=== PATIENT | female | born 1945 | race Caucasian/White ===

== ENCOUNTER 2018-06-20 13:41 | Observation (INO) | payer MEDICARE ==
[~2018-06-20 13:41] MED LIST: ISOVUE-370 76%-LOCM 1 ML ONE
[2018-06-20] MEDS ORDERED: Ondansetron ODT 4 MG TAB SL PRN (16:24)
[2018-06-20] MEDS ORDERED: Ondansetron HCl/PF 4 MG/2 ML Vial IVP PRN ×2 (16:24→16:33)
--- NOTE | 2018-06-20 16:25 | PDOC.FPRHP ---
- History of Present Illness Chief Complaint: numbness/tingling History of Present Illness: This is a 73 yo F here from [facility] with PMH significant for AVR 1 year ago , DM, HTN, HLD, presenting for numbness and tingling of the right upper extremity and right face. The patient was shopping with her sister when she began developing these symptoms. The sister endorses that patient's speech was slurred and that she was having a hard time getting her words out as well as some right sided facial droop. The patient noted some vision changes during the episodes that looked like "a loop going in circles on her shirt." The patient denies nausea, vomiting, dizziness, chest pain or palpitations during the episode. The episode resolved after 30-45 mins. On exam currently, her symptoms have resolved and she no longer has weakness or tingling. She is responding normally and is AXOX3. She has no complaints and denies SOB, chest pain, abdominal pain, weakness, tingling, NVD. - Allergies/Adverse Reactions Allergies Allergy/AdvReac Type Severity Reaction Status Date / Time codeine Allergy severe n/v Verified 01/24/17 12:48 Penicillins Allergy Verified 01/24/17 12:48 - Home Medications Medication Instructions Recorded Confirmed Type Metoprolol Succinate 25 mg PO DAILY 01/04/17 06/20/18 History Rosuvastatin Calcium 1 tab PO HS 01/04/17 06/20/18 History metFORMIN HCl [Metformin HCl ER] 1 tab PO DAILY 01/04/17 06/20/18 History Aspirin [Ecotrin] 81 mg PO DAILY 06/20/18 06/20/18 History Losartan [Cozaar] 25 mg PO HS 06/20/18 06/20/18 History - History PMHx: DM, HTN, HLD PSHx: rib removal, appendectomy, hysterectomy, aortic valve replacement, hand surgery, Bunyan surgery FHx: Mother & brother: stroke at 50 Social: denies tobacco, alcohol, or drug use - Review of Systems General: denies: fever/chills, weight/appetite/sleep changes, night sweats, fatigue Eyes: reports: vision changes. denies: eye pain ENT: denies: nasal congestion, rhinorrhea Respiratory: denies: cough, congestion, shortness of breath, exercise intolerance Cardiovascular: denies: chest pain, palpitation, edema, paroxysmal nocturnal dyspnea Gastrointestinal: denies: nausea, vomiting, diarrhea, constipation, abdominal pain Genitourinary: denies: incontinence, dysuria, polyuria Skin: denies: rashes, lesions Musculoskeletal: denies: pain, tenderness, stiffness, swelling Neurological: reports: numbness, weakness. denies: syncope, seizure Psychological: denies: anxiety, depression - Vital signs BP: 143-163/64 HR: 75 RR: 20 Tmax: 98.1 Pox: 100% on RA Wt: [] - Physical Exam Constitutional: NAD, awake, alert and oriented, well developed HEENT: normocephalic and atraumatic, PERRLA, EOMI, no scleral icterus, grossly normal vision, grossly normal hearing, MMM Neck: supple, no bruits -Neck: mild JVD Chest: no-tender to palpation Heart: RRR, pulses present -Heart: 2/6 systolic murmur Lungs: CTAB, no respiratory distress, good air movement, no wheezing Abdomen: soft, non-tender, bowel sounds present, no masses/distention Musculoskeletal: normal structure, normal tone, ROM grossly normal Neurological: no focal deficit, CN II-XII intact, normal sensation, DTRs 2+ Skin: no rash/lesions, good turgor, capillary refill <2 seconds Heme/Lymphatic: no unusual bruising or bleeding, no purpura, no petechia Psychiatric: normal mood and affect, intact recent and remote memory FMR H&P: Results - Radiology Interpretation CT scan - head Additional comment: unremarkable FMR H&P: A/P - Problem List (1) Transient ischemic attack (TIA) Current Visit: Yes Status: Acute Code(s): G45.9 - TRANSIENT CEREBRAL ISCHEMIC ATTACK, UNSPECIFIED (2) Diabetes Current Visit: Yes Status: Acute Code(s): E11.9 - TYPE 2 DIABETES MELLITUS WITHOUT COMPLICATIONS (3) HTN (hypertension) Current Visit: Yes Status: Acute Code(s): I10 - ESSENTIAL (PRIMARY) HYPERTENSION (4) Hyperlipidemia Current Visit: Yes Status: Acute Code(s): E78.5 - HYPERLIPIDEMIA, UNSPECIFIED (5) History of aortic valve replacement Current Visit: Yes Status: Acute Code(s): Z95.2 - PRESENCE OF PROSTHETIC HEART VALVE - Plan This is a 73 year old F presenting here for work up for TIA/stroke. TIA - symptoms have resolved - Will get CTA head and neck and MRI - Will get EKG - Will get Echo as patient has hx of AVR one year ago - Will consult neurology DM - continue home meds HTN - continue home meds HLD - continue home meds Hx of AVR - s/p 1 year ago; bovine valve - Will continue to monitor and give home meds DISPO: likely discharge tomorrow pending imaging results and work up CODE: FULL Case discussed with Dr. Ivan FMR H&P: Upper Level - Pertinent history 73F seen for numbness and weakness of right hand, right sided facial weakness. She was shopping when these symptoms occurred. It was witnessed by her sister, occurring at 1030 AM. It has been constant since then but has completely resolved by time of this interview. She associate weakness with left sided headache that felt like a "migraine". She noted before symptom started, she had vision change, seeing yellow loops moving in circles. Issue resolved in 30-45 minute. She denies fever, chills, SOB, chest pain, abd pain, tingling. - Pertinent findings Gen: Alert, grossly oriented, pleasant HEENT: Normocephalic, moist mucosal membrane, supple neck CV: RRR with no obvious g/r. No bruit heard. 2/6 systolic murmur. Hx of aortic heart valve. Resp: CTA bilat GI: Normoactive, not tender to palpation Neuro: CN II-XII grossly intact, no focal weakness, stregnth 5/5 in upper and lower ext. Normal tone. Sensation grossly intact. Patient AOx3 - Plan Date/Time: 06/20/18 1612 I, [Tr Pérez MD], have evaluated this patient and agree with findings/plan as outlined by financial internship resident. Pertinent changes/additions are listed here. 1. TIA: Plan, obtain MRI, CTA head/neck, TTE and lipid panel to help risk stratify. COnsult Neurology. Medically manage with aspirin, statin. Symptom has resolved. 2. Diabetes: Hold metformin due to contrast imaging. Mild SSI. BG controlled at this time. 3. HTN: At this time, BP is WNL. Continue with home medication. 4. HLD: Chronic issue. Risk stratify with lipid panel. Patient to be on mod- high intensity statin. 5. Hx of aortic valve replacement: Obtain TTE to rule out cardiac causes of emboli.
[2018-06-20] MEDS ORDERED: Ondansetron ODT 4 MG TAB PO PRN (16:33)
[2018-06-20] MEDS ORDERED: Acetaminophen 325 MG TAB PO PRN (16:33)
[2018-06-20 17:43] VITALS: BMI 32.3
--- NOTE | 2018-06-20 18:41 | CT ---
CT ARTERIOGRAM HEAD WITH IV CONTRAST AND 3D MIP IMAGING CT ARTERIOGRAM NECK WITH IV CONTRAST AND 3D MIP IMAGING CT HEAD WITH AND WITHOUT IV CONTRAST 06/20/18 HISTORY: TIA. Right facial and arm numbness. FINDINGS: No acute intracranial hemorrhage or infarct. Mild chronic ischemic small vessel disease. No abnormal areas of contrast enhancement. Mild atelectasis at the posterior lungs. Prominent degenerative changes cervical spine. Tiny cystic l esion within the right thyroid lobe. Very mild arterial calcification within the chest. Normal branching of the great vessels. Good flow i nto each internal carotid and vertebral system. Carotid bifurcations are widely patent. No significant plaque. [place] is intact. Good flow into each cerebral and posterior fossa arterial system with minimal calcification. IMPRESSION: Minimal atherosclerosis. No evidence of significant stenosis. No acute abnormalities are demonstrated. POS: BIJU
--- NOTE | 2018-06-21 05:31 | PDOC.FM ---
- Subjective Subjective: This is a 73 yo F here for TIA symptoms. She began having numbness and tingling in the RUE along with right facial droop that resolved after 30-45 min. A few hours after her presentation to the hospital, she had new onset left sided tingling and numbness that has also resolved. On exam this morning, the patient complains of a persistent dull headache in the right judaism region. She endorses numbness and tingling in the right hand overnight X 3 that lasted only a few minutes at a time. She has also had vision changes different from yesterday. Today she describes black lines that "look like bugs running along the line." She has had cataract surgery but no known glaucoma or macular degeneration. She has not appreciated any slurred speech or facial droop over night. Patient expresses she would really like to go home and will follow up with Dr. Simpson. She denies SOB, chest pain, abdominal pain, headche, fever, chills, NVD. - Objective MAR Reviewed: Yes Vital Signs & Weight: Vital Signs (12 hours) Temp Pulse Resp BP Pulse Ox 06/21/18 04:20 97.4 F L 72 18 163/74 H 96 06/20/18 23:35 97.6 F 76 16 149/67 H 97 06/20/18 20:40 97.6 F 71 18 06/20/18 20:00 97.6 F 71 18 145/68 H 95 06/20/18 18:41 177/79 H Weight Weight 82.809 kg I&O: 06/19/18 06/20/18 06/21/18 06:59 06:59 06:59 Intake Total 450 Balance 450 Result Diagrams: 06/21/18 05:19 06/21/18 05:19 Phys Exam - Physical Examination Constitutional: NAD HEENT: PERRLA, moist MMs, sclera anicteric Neck: no JVD, supple, full ROM no bruits Respiratory: no wheezing, no rales, no rhonchi, clear to auscultation bilateral Cardiovascular: RRR 2/6 systolic murmur Gastrointestinal: soft, non-tender Musculoskeletal: pulses present Neurological: non-focal, normal sensation, moves all 4 limbs 5/5 strength in all extremities; CN II-X intact Psychiatric: normal affect, A&O x 3 Skin: no rash, normal turgor Dx/Plan (1) Transient ischemic attack (TIA) Code(s): G45.9 - TRANSIENT CEREBRAL ISCHEMIC ATTACK, UNSPECIFIED Status: Acute (2) Diabetes Code(s): E11.9 - TYPE 2 DIABETES MELLITUS WITHOUT COMPLICATIONS Status: Acute (3) HTN (hypertension) Code(s): I10 - ESSENTIAL (PRIMARY) HYPERTENSION Status: Acute (4) Hyperlipidemia Code(s): E78.5 - HYPERLIPIDEMIA, UNSPECIFIED Status: Acute (5) History of aortic valve replacement Code(s): Z95.2 - PRESENCE OF PROSTHETIC HEART VALVE Status: Acute - Plan Plan: This is a 73 year old F presenting here for work up for TIA/stroke vs complex migraine. TIA - symptoms have resolved - CTA head and neck: minimal atherosclerosis, no evidence of stenosis - MRI results pending - EKGs have been normal sinus - Will get Echo today as patient has hx of AVR one year ago - Neurology has been consulted: we appreciate their recommendations DM - continue home meds HTN - continue home meds HLD - continue home meds Hx of AVR - s/p 1 year ago; bovine valve; on ASA - Will continue to monitor and give home meds DISPO: likely discharge today pending MRI and Echo CODE: FULL Case discussed with Dr. Huff
[2018-06-21 05:58] LABS: ALT (SGPT) 31 U/L (8-55); AST (SGOT) 31 U/L (5-34); Albumin 4.3 g/dL (3.4-4.8); Alkaline Phosphatase 57 U/L (40-150); Anion Gap 14 mmol/L (10-20); BUN (Urea Nitrogen) 13 mg/dL (9.8-20.1); Bilirubin, Total 0.4 mg/dL (0.2-1.2); Calc. Creatinine Clearance 78 mL/min (70-130); Carbon Dioxide 25 mmol/L (23-31); Cardiac Risk 4.8 (Less than 4.5); Chloride 105 mmol/L (98-107); Cholesterol 172 mg/dl (< 200 Desired); Estimated GFR-MDRD 69; Globulin 3.4 g/dL (2.4-3.5); Glucose 145 mg/dL (83-110); HDL Cholesterol 36 mg/dL (>60 Neg Risk); LDL Cholesterol, Calculated 92 mg/dL; Potassium 3.7 mmol/L (3.5-5.1); Protein, Total 7.7 g/dL (6.0-8.3); Sodium 140 mmol/L (136-145); Triglycerides 220 mg/dL (Less than 150)
[2018-06-21 06:10] LABS: #Eosinphils 0.2 thou/uL (0.0-0.7); #Lymphocytes 1.8 thou/uL (1.20-3.40); #Monocytes 0.5 thou/uL (0.11-0.59); #Neutrophils 3.1 thou/uL (1.40-6.50); %Basophils 0.8 % (0.0-1.0); %Eosinophils 4.2 % (0.0-10.0); %Lymphocytes 31.6 % (21.0-51.0); %Neutrophils 55.3 % (42.0-75.0); Hemoglobin 12.5 g/dL (12.0-16.0); Mean Corpuscular HGB CONC 34.4 g/dL (32.0-36.0); Mean Corpuscular Hemoglobin 30.5 pg (27.0-31.0); Mean Corpuscular Volume 88.9 fL (78.0-98.0); Mean Platelet Volume 7.1 fL (7.4-10.4); Platelet Count 221 thou/uL (130-400); RBC Distribution Width 12.7 % (11.5-14.5); White Blood Cell (WBC) Count 5.6 thou/uL (4.8-10.8)
[2018-06-21] MEDS ORDERED: metFORMIN XR 500 MG TAB PO SCH (08:00)
[2018-06-21] MEDS ORDERED: Aspirin 81 mg Enteric Coated Tablet PO SCH (09:00)
[2018-06-21] MEDS ORDERED: Enoxaparin Sodium 40 MG/0.4 ML SYRINGE SC SCH (09:00)
--- NOTE | 2018-06-21 11:02 | MRI ---
MRI BRAIN: Date: 06/21/18 HISTORY: Left-sided facial and arm tingling. FINDINGS: Noncontrast enhanced MRI of brain obtained. Images demonstrate no evidence of areas of diffusion signal abnormalities. No evidence of intracrania l masses, hemorrhages, or strokes seen. Deep white matter ischemic changes are noted. Normal flow-voids seen in the major intracranial vessels. IMPRESSION: Deep white matter ischemic changes. Otherwise unremarkable MRI brain. POS: NAZARIO
[2018-06-21 11:51] VITALS: BP 161/79; TEMP 97.4
--- NOTE | 2018-06-21 17:22 | CON ---
DATE OF CONSULTATION: 06/20/2018 REFERRING PHYSICIAN: Maine Aguirre M.D. REASON FOR CONSULTATION: Right-sided numbness. HISTORY OF PRESENT ILLNESS: Ms. Monteiro is a pleasant 73-year-old female who has been consult ed for evaluation of right-sided numbness. The patient reports that she was shopping with her sister when she started developing numbness and tingling in the right upper extremity which then spread to involve the right side of the face. She also started noticing that she was having difficulty with ge tting her words out as well as some facial droop on the right side. This concerned her and so she de cided to present to the outside emergency room and then transferred over here for higher level of car e. She reports that after arriving here, her symptoms had resolved; however, a few minutes after arr iving here, she started noticing similar symptoms in her left side for which a stat CT head and CT an giogram of the head and neck were done, which showed no acute intracranial or extracranial vascular a bnormality. She states that she also started noticing headache on the left frontal orbital region th at was throbbing in quality and mild to moderate in intensity and nonradiating. She does report of h aving history of migraines in the past, but has been migraine free for several years. PAST MEDICAL HISTORY: Significant for hypertension, diabetes, and hyperlipidemia. PAST SURGICAL HISTORY: Significant for appendectomy, hysterectomy, aortic valve replacement, hand banegas rgery, bunion surgery and rib removal. FAMILY HISTORY: Significant for stroke in his mother and brother. SOCIAL HISTORY: She denies smoking, alcohol use, or illicit drug use. CURRENT MEDICATIONS: Please review MAR. ALLERGIES: Include CODEINE and PENICILLIN. REVIEW OF SYSTEMS: As mentioned above in HPI, otherwise negative. PHYSICAL EXAMINATION: VITAL SIGNS: Blood pressure of 148/97, pulse of 70, temperature of 97.4, respirations of 16, O2 sats 95% on room air. GENERAL: Well-developed, well-nourished female in no apparent distress. RESPIRATORY: Clear to auscultation, contrast. CARDIOVASCULAR: Regular rate and rhythm. NEUROLOGIC: Mental status: The patient is awake, alert, oriented x3. Speech and language: Fluent speech. Cranial nerves: Pupils are 3 mm and reactive. Visual browne are intact. External muscles are intact. No nystagmus. Face is symmetric. Tongue and uvula are midline. Motor exam showed norm al tone and bulk with a 5/5 strength in both upper and lower extremities. Sensory: Sensation is int act and symmetric. Deep tendon reflexes 2+ reflexes in both upper and lower extremities. Babinski: Plantar responses flexion bilaterally. Coordination intact to [id number] tapping bilaterall y. LABORATORY DATA: Reviewed, which included CBC, CMP, lipid profile, which is significant for total ch olesterol 172, LDL of 92, HDL of 36, and triglycerides of 220, otherwise unremarkable. IMAGING STUDIES: CT angiogram of the head and neck were reviewed, which showed no acute intracranial or extracranial vascular abnormality. IMPRESSION: 1. Transient episode of right-sided numbness followed by numbness, now resolved. 2. Headache. Ms. Monteiro is a pleasant 73-year-old female who presented with the sudden onset of right-side d numbness, word finding difficulty. This was then followed by left-sided numbness and weakness. Sh e had a headache with this episode. This episode may have been either transient ischemic attack or c omplicated migraine. At this time, we will recommend obtaining MRI brain without contrast for furthe r evaluation. I would also recommend obtaining echocardiogram and if both studies are normal, then talia peterson has likely had complicated migraine. The patient is okay to be discharged to home once the MR I is done. If it is negative, she will continue with aspirin 81 mg daily for secondary stroke preven tion. Continue current medical management. Thank you for consultation.
[2018-06-21] MEDS ORDERED: Rosuvastatin 10 MG TAB PO SCH (21:00)
[2018-06-21] MEDS ORDERED: Losartan 25 MG TAB PO SCH (21:00)
--- NOTE | 2018-06-21 22:26 | DIS ---
DATE OF ADMISSION: 06/20/2018 DATE OF DISCHARGE: 06/21/2018 RESIDENT: Maine Aguirre M.D. ADMITTING ATTENDING: Dr. Foy. DISCHARGE ATTENDING: Dr. Baum. CONSULTATIONS: Neurology - Dr. Briggs. PROCEDURES: 1. CT angiography showed minimal atherosclerosis. No evidence of significant stenosis. No acute abnormalities. 2. CT [place] angiography showing same as above. 3. MRI showed deep white matter ischemic changes. Otherwise, unremarkable. 4. Echo report showed left ventricular ejection fraction estimated at 55%-60%. Diastolic dysfunction suggested. Mild mitral regurgitation, mitral annular calcification present, mild tricuspid regurgitation. PRIMARY DIAGNOSIS: Complex migraine. SECONDARY DIAGNOSES: Diabetes, hypertension, hyperlipidemia, history of aortic valve replacement. DISCHARGE MEDICATIONS: 1. Metoprolol succinate 25 mg oral daily. 2. Metformin 1 tab oral daily. 3. Rosuvastatin calcium 1 tab oral at bedtime. 4. Losartan (Cozaar 25 mg oral at bedtime). 5. Aspirin 81 mg oral daily. DISCONTINUED MEDICATIONS: None. HISTORY OF PRESENT ILLNESS AND HOSPITAL COURSE: This is a pleasant 73-year-old female who presented to the ED with right upper extremity numbness, tingling, and weakness associated with a facial droop on the right side and slurred speech. She also endorsed an aura of color in her peripheral vision and moving lines that occurred during the episode. This episode lasted about 30-45 minutes and then her symptoms resolved. The patient has complained of a dull headache persisting throughout her stay. She was given aspirin in the ED and her symptoms have resolved. The patient had a couple of additional episodes of right upper extremity tingling that occurred overnight, but resolved after a few minutes. She was worked up for possible TIA versus stroke and CT, CTA and MRI were all negative. Lipid panel normal. Neurology was consulted and stated that her symptoms are likely secondary to a complex migraine. They recommended to keep patient on aspirin. An echocardiogram was also done due to the patient's history of aortic valve replacement and this showed an ejection fraction of 55%-60%, likely diastolic dysfunction. This is a patient of Dr. Simpson and he is aware of her condition and he states they will discuss starting prophylaxis for migraines. She plans to follow up with him soon. DISPOSITION: Stable. DISCHARGE INSTRUCTIONS: 1. Location: Home. 2. Diet: Heart healthy. 3. Activity: Ad yvon. 4. Follow up with PCP within 1 week. ROLFD
--- NOTE | 2018-06-22 19:08 | ADD-HP ---
ADDENDUM The patient was seen and evaluated and examined with the resident by bedside. Basically, a 73-year-old with history of aortic valve replacement, bovine a year ago. Comes in with right upper extremity weakness and some slurring speech that happened yesterday. He is being seen by neurologist and they are requesting that this may be a migraine because she is having headache today , but her symptoms have resolved. So far all workup has been negative including CT and CTA of the he ad, etc. She was taking aspirin. Past medical history, surgical history, medications, review of systems, family history, all per Dr. Jennie pennington's history and physical for which I concur. PHYSICAL EXAMINATION: VITAL SIGNS: Afebrile, vital signs are stable. GENERAL: No apparent distress. Alert and oriented x3 and appropriate. No slurring speech. The res t of the neurologic exam is completely normal. Currently, no deficit. CHEST: Clear. CARDIOVASCULAR: Regular rate and rhythm. Workup again is significant for normal MRI, CTA and CT. ASSESSMENT AND PLAN: Transient ischemic attack versus hemiplegic atypical migraine. We will see tucker forte Neurology says, likely going to consider switching to Plavix or Aggrenox just for better stroke pre vention, but otherwise we will continue all her same home medications and likely will be able to send her out today.
== END 2018-06-21 12:22 | disposition home or self-care (01) ==
LOC: ERS 13:41 → 2SE 14:09
PROVIDERS: ADMIT Family Medicine; ATTEND Family Medicine
DX: G43.809 Other migraine, not intractable, without status migrainosus (principal); R20.2 Paresthesia of skin; R47.81 Slurred speech; R29.810 Facial weakness; E11.9 Type 2 diabetes mellitus without complications; I10 Essential (primary) hypertension; E78.5 Hyperlipidemia, unspecified; Z79.82 Long term (current) use of aspirin; Z79.84 Long term (current) use of oral hypoglycemic drugs; Z79.899 Other long term (current) drug therapy; Z88.0 Allergy status to penicillin; Z88.5 Allergy status to narcotic agent; Z95.3 Presence of xenogenic heart valve
CPT/HCPCS: 70496; 70498; 70551; 80053; 80061; 82962 ×2; 85025; 85652; 93005; 93306; 94660; 94760; 96372; 97116; 97139 ×2; 99285; G0378 ×2; G8978; G8979; G8987; G8988; G8989; 36415; 36416; 93010; G9162-GN-CI; G9163-GN-CH; J1650

== ENCOUNTER 2019-03-13 12:09 | Inpatient (IN) | payer MEDICARE ==
[2019-03-13 12:33] LABS: #Eosinphils 0.1 thou/uL (0.0-0.7); #Lymphocytes 2.8 thou/uL (1.20-3.40); #Monocytes 0.5 thou/uL (0.11-0.59); #Neutrophils 5.7 thou/uL (1.40-6.50); %Basophils 0.2 % (0.0-1.0); %Eosinophils 0.7 % (0.0-10.0); %Lymphocytes 30.8 % (21.0-51.0); %Neutrophils 63.3 % (42.0-75.0); Hemoglobin 8.7 g/dL (12.0-16.0); Mean Corpuscular HGB CONC 34.4 g/dL (32.0-36.0); Mean Corpuscular Hemoglobin 30.9 pg (27.0-31.0); Mean Corpuscular Volume 89.7 fL (78.0-98.0); Mean Platelet Volume 6.9 fL (7.4-10.4); Platelet Count 191 thou/uL (130-400); RBC Distribution Width 13.3 % (11.5-14.5); Red Blood Cell (RBC) Count 2.83 mill/uL (4.20-5.40); White Blood Cell (WBC) Count 8.9 thou/uL (4.8-10.8)
[2019-03-13] MEDS ORDERED: SUGAMMADEX SODIUM 200 MG/2 ML VIAL ONE (14:10)
[2019-03-13] MEDS ORDERED: Pantoprazole 40 MG VIAL IVP SCH (14:30)
[2019-03-13] MEDS ORDERED: Sodium Chloride 0.9% (PF) 10 ML VIAL FS PRN (15:23)
--- NOTE | 2019-03-13 15:38 | PDOC.FPRHP ---
- History of Present Illness Chief Complaint: GI bleed History of Present Illness: This is a 74 yo female with a pmh of HTN, HLD, afib, aortic valve replacement who underwent an urgent EGD following coffee ground emesis at an outpt hospital. Pt was found to have large bleeding ulcer. During EGD pt vomited tg blood and subsequently had the ulcer cauterized. Pt was initially admitted to [facility] in [place] for dehydration following what appeared to be a viral gastroenteritis with associate malaise, diarrhea, and vomiting. While there she had a drop of her Hgb from 10.6-6.4 in a 24hr period. Pt had the coffee ground emesis as above and was transferred to [facility]. ED Course: 4 Units of PRBCs - Allergies/Adverse Reactions Allergies Allergy/AdvReac Type Severity Reaction Status Date / Time codeine Allergy severe n/v Verified 03/12/19 12:59 Penicillins Allergy Verified 03/12/19 12:59 - Home Medications Medication Instructions Recorded Confirmed Type Metoprolol Succinate 25 mg PO HS 01/04/17 03/13/19 History metFORMIN HCl [Metformin HCl ER] 1 tab PO BID 01/04/17 03/13/19 History Aspirin [Ecotrin Low Strength] 81 mg PO DAILY 06/20/18 03/13/19 History Losartan [Cozaar] 25 mg PO HS 06/20/18 03/13/19 History Cholecalciferol (Vitamin D3) 1,000 unit PO DAILY 03/12/19 03/13/19 History [Vitamin D3] Minoxidil [Hair Regrowth Treatment 1 applic TP BID 03/12/19 03/13/19 History 2%] Sertraline HCl 1 tab PO DAILY 03/12/19 03/13/19 History Topiramate [Topamax] 1 tab PO BID 03/12/19 03/13/19 History Rosuvastatin [Crestor] 10 mg PO DAILY 03/13/19 03/13/19 History - History PMHx: HLD, HTN, DM2, anxiety PSHx: Appendecotmy, hysterectomy, aortic valve replacement FHx: Unable to obtain Social: Denies JOE - Review of Systems ROS unobtainable: other (Pt just waking up from EGD, limiting ROS) Respiratory: denies: shortness of breath Cardiovascular: denies: chest pain Musculoskeletal: denies: tenderness - Vital signs BP: 141/79 HR: 102 RR: 20 Tmax: 98.8 Pox: 99% on ra Wt: 180 kg - Physical Exam Constitutional: NAD, well developed, other (slight confused) HEENT: normocephalic and atraumatic, EOMI, grossly normal hearing, MMM Neck: FROM, trachea midline, no JVD Chest: no-tender to palpation, no lesions Heart: RRR, normal S1/S2, pulses present, other (2/6 systolic murmur) Lungs: CTAB, no respiratory distress, good air movement, no retractions Abdomen: other (light palpation) Musculoskeletal: normal structure, ROM grossly normal Neurological: no focal deficit Skin: capillary refill <2 seconds Heme/Lymphatic: no unusual bruising or bleeding Psychiatric: other (Appears normal mood/affect, waking up from EGD) FMR H&P: Results - Labs Result Diagrams: 03/13/19 17:54 Lab results: WBC 8.9 thou/uL (4.8-10.8) 03/13/19 12:24 Hgb 8.7 g/dL (12.0-16.0) L 03/13/19 12:24 Hct 25.4 % (36.0-47.0) L 03/13/19 12:24 MCV 89.7 fL (78.0-98.0) 03/13/19 12:24 Plt Count 191 thou/uL (130-400) 03/13/19 12:24 Neutrophils % 63.3 % (42.0-75.0) 03/13/19 12:24 - Radiology Interpretation Chest x-ray Status: report reviewed by me (No acute intrathoracic disease) FMR H&P: A/P - Problem List (1) Upper GI bleed Current Visit: Yes Status: Acute Code(s): K92.2 - GASTROINTESTINAL HEMORRHAGE, UNSPECIFIED (2) Diabetes Current Visit: No Status: Acute Code(s): E11.9 - TYPE 2 DIABETES MELLITUS WITHOUT COMPLICATIONS (3) HTN (hypertension) Current Visit: No Status: Acute Code(s): I10 - ESSENTIAL (PRIMARY) HYPERTENSION (4) History of aortic valve replacement Current Visit: No Status: Acute Code(s): Z95.2 - PRESENCE OF PROSTHETIC HEART VALVE (5) Hyperlipidemia Current Visit: No Status: Acute Code(s): E78.5 - HYPERLIPIDEMIA, UNSPECIFIED - Plan This is a 74 yo female with a pmh HTN, HLD, afib, aortic valve replacement Acute GI hemorrhage with symptomatic anemia -Admit to IMCU -S/P EGD with cauderization of ulcer -s/p 4 units PRBCs -Serial H/H -IV protonix -Consult GI HTN -Monitor, restart meds when can tolerate PO -PRN meds in place Hypothyroidism -Continue home meds when pt can tolerate PO DM2 -Continue home meds when pt can tolerate PO -SSI, ACHS accuchecks Afib -Start home meds when pt can tolerate PO, hold anticoagulation/platelet CAD, stable CKD II, stable Code: Full Prophylaxis: Protonix Family: none at bedside Diet: NPO Disposition: DC in 2-3 days PCP: Tatiana RED H&P: Upper Level - Plan Date/Time: 03/13/19 6634 I, Frantz Hankins, have evaluated this patient and agree with findings/plan as outlined by internet specialist resident. Pertinent changes/additions are listed here. HPI Pt is a 59 y/o F that initially presented to [facility] ED for coffee ground emesis , diarrhea. Underwent EGD and ulcers cauterized by GI. Also reported 6.4 hemoglobin this AMand has received 4u PRBCs, 2 in [place], and finishing the last now. Reportedly vomited blood during procedure and GI asked Medicine to see him. Pt alert, but sedation from procedure limiting HPI/ROS which were obtained mostly from chart and nursing. PROBLEM LISTANDPLAN: # Acute Blood Loss Anemia 2/2 GI Bleed- Repeat H/H in 2hr and q4-6 afterwards. NG tube in place on Protonix BID. GI following. Hopefully resolved bleeding after procedure. # Gastric Ulcers- GI following as above # T2DM- No acute issues. Resume home medications # Aortic Valve Replacement- No acute issues. # AFIb- Continue home medications and tele monitoring in IMCU overnight # MYRNA- CPAP PRN # Obesity- No acute problems # Hypothyroidism- Resume home meds # CAD- No acute chest discomfort. # CKD- GFR stable at 72 Addendum - Attending - Attending Attestation Date/Time: 03/13/19 1615 I personally evaluated the patient and discussed the management with Dr. Marquez /Nhi. I agree with the History, Examination, Assessment and Plan documented above with any addition or exceptions noted below. Patient admitted here for upper GI bleed. Patient previously hospitalizated at [place] for "dehydration" but transferred here this morning for urgent EGD due to coffee ground emesis and acute drop in Hgb. EGD showed evidence of acute bleed that required cautery. She has received multiple units of PRBCs. She reports to me in the PACU (after her EGD) that she has been feeling week and having melena the last few days, but denies hematemesis. Reports no previous history of GI bleed. Reports she takes ASA daily and has been using NSAIDs for arthritis pain. Reports no abdominal pain. She will be admitted to the IMCU for close monitoring of acute upper GI bleed. GI already on board. Trend H/H and transfuse as needed. Protonix IV BID and await further recs from GI. Avoid NSAIDs.
[2019-03-13] MEDS ORDERED: Acetaminophen 325 MG TAB PO PRN (15:39)
[2019-03-13] MEDS ORDERED: Ondansetron ODT 4 MG TAB PO PRN (15:39)
[2019-03-13] MEDS ORDERED: Acetaminophen 650 MG Suppository PR PRN (15:39)
[2019-03-13] MEDS ORDERED: Dextrose 50% Abboject 50 ML SYRINGE SLOW IVP PRN (15:58)
[2019-03-13] MEDS ORDERED: HumaLOG 300 UNITS/3 ML VIAL SC PRN ×2 (15:58)
[2019-03-13] MEDS ORDERED: Dextrose 5% in Water 1,000 ML IV PRN (15:58)
--- NOTE | 2019-03-13 17:04 | CON ---
DATE OF CONSULTATION: 03/13/2019 REASON FOR CONSULTATION: GI bleeding. HISTORY AND PHYSICAL: Ms. Cornejo is a very pleasant 74-year-old female, hospitalized with black tarry stool. Apparently, she went to the ER yesterday with a history of vomiting coffee-ground material. She had a CBC done and was pretty stable at that time. The hemoglobin yesterday was 10.6, hematocrit 32.8. She was sent back to half-way. At the half-way, she had large back tarry stool x2. She was sent back to the ER, was hospitalized. This morning, the hemoglobin 6.4, hematocrit 28.3, MCV 89.9, indicating acute blood loss. The patient has no abdominal pain. There is no nausea, no vomiting. No similar episodes in the past. The patient denies any past history of peptic ulcer. The patient is being transfused 2 units today because of bleeding. The chemistry panel shows a BUN of 43, creatinine 0.78. The elevation in the BUN is most likely from GI bleeding. No relevant history. ALLERGIES: CODEINE AND PENICILLIN. SOCIAL HISTORY: The patient is a half-way resident. No smoking or alcohol abuse. MEDICAL ILLNESSES: 1. Hypertension. 2. Diabetes mellitus. 3. Hyperlipidemia. 4. TIA, mild stroke in 2017. 5. Hysterectomy. 6. Cholecystectomy. 7. Appendectomy. 8. Aortic valve replacement in 2017. MEDICATION LIST: Reviewed. REVIEW OF SYSTEMS: A 10-point system review: CONSTITUTIONAL: No history of fever. No weight loss. She has good energy level. HEENT: No headache. No dizziness. No syncope. EYES: No impaired vision. No diplopia. THROAT: No dysphagia. NECK: No stiffness or pain. CARDIOVASCULAR: No chest pain. No palpitation. No dyspnea, orthopnea, PND. RESPIRATORY: No chronic cough. No hemoptysis. GI: No abdominal pain. No nausea or vomiting. History of black tarry stool x2. : Not known. MUSCULOSKELETAL: Not known. NEUROPSYCHIATRY: Not known. PHYSICAL EXAMINATION: VITAL SIGNS: Afebrile. Pulse is 91, blood pressure 140/63. HEENT: Conjunctivae are clear. NECK: Supple. No adenitis or thyromegaly noted. CARDIOVASCULAR SYSTEM: First and second heart sounds heard. She has systolic murmur. LUNGS: Clear to auscultation. ABDOMEN: Soft. No organomegaly. No tenderness. No masses. EXTREMITIES: Reveal no edema. CENTRAL NERVOUS SYSTEM: Grossly normal. LABORATORY DATA: Lab data shows sodium 144, potassium 4, chloride 190, bicarb 17, BUN is 43, mostly from GI bleeding, creatinine is 0.78, glucose 226. Troponin 0.020. Lactic acid 1.5. Calcium 8. CBC; WBC 9300, hemoglobin 6.4, hematocrit 28.3, MCV 89.1, platelet count 211,000 polymorphs 75, lymphocytes 17. CLINICAL IMPRESSION: 1. A 74-year-old female with coffee-ground vomiting yesterday and subsequently two black tarry stool. Her blood count dropped down from 10.6 to 6.4. The patient appears to be bleeding. The patient most likely has bleeding ulcer disease. At the present time, she appears to be hemodynamically stable. 2. Hypertension. 3. Diabetes. 4. Hyperlipidemia. 5. Aortic valve replacement 2017. 6. History of spinal cerebrovascular accident recovery in 2017. 7. Anemia due to blood loss. RECOMMENDATION: Transfuse. PPI. N.p.o. We will plan for emergent EGD later on today. Job ID: [id number]
[2019-03-13] MEDS ORDERED: Labetalol HCl 100 MG/20 ML VIAL SLOW IVP PRN (17:26)
[2019-03-13] MEDS ORDERED: hydrALAZINE 20 MG/ML VIAL SLOW IVP PRN (17:26)
[2019-03-13] MEDS ORDERED: Ondansetron PF 4 MG/2 ML Vial ONE (17:37)
[2019-03-13] MEDS ORDERED: EPINEPHrine 1 MG/10 ML Abboject SYRINGE ONE (17:37)
[2019-03-13] MEDS ORDERED: Ondansetron PF 4 MG/2 ML Vial IVP PRN (17:37)
[2019-03-13] MEDS ORDERED: Glycopyrrolate 0.2 MG/ML 5 ML SYRINGE ONE (17:37)
[2019-03-13] MEDS ORDERED: Lidocaine 1% PF 5 ML VIAL ONE (17:37)
[2019-03-13] MEDS ORDERED: Rocuronium Bromide 10 MG/ML (10ML VIAL) ONE (17:37)
[2019-03-13] MEDS ORDERED: PHENYLEPHRINE-NS 100 MCG/ML 10 ML SYRINGE ONE (17:37)
[2019-03-13] MEDS ORDERED: PROPOFOL 200 MG/20 ML VIAL ONE (17:37)
[2019-03-13] MEDS ORDERED: Succinylcholine Chloride 20 MG/ML 10 ml SYRINGE FS ONE (17:37)
[2019-03-13 18:01] LABS: #Lymphocytes 1.8 thou/uL (1.20-3.40); #Monocytes 0.6 thou/uL (0.11-0.59); #Neutrophils 9.4 thou/uL (1.40-6.50); %Basophils 0.4 % (0.0-1.0); %Eosinophils 0.3 % (0.0-10.0); %Lymphocytes 15.5 % (21.0-51.0); %Monocytes 4.7 % (0.0-10.0); %Neutrophils 79.1 % (42.0-75.0); Hemoglobin 10.7 g/dL (12.0-16.0); Mean Corpuscular HGB CONC 34.2 g/dL (32.0-36.0); Mean Corpuscular Hemoglobin 30.6 pg (27.0-31.0); Mean Corpuscular Volume 89.4 fL (78.0-98.0); Platelet Count 158 thou/uL (130-400); White Blood Cell (WBC) Count 11.8 thou/uL (4.8-10.8)
[2019-03-13] MEDS ORDERED: Morphine 2 MG/ML SYRINGE ONE (18:02)
[2019-03-13 18:21] LABS: ALT (SGPT) 9 U/L (8-55); AST (SGOT) 10 U/L (5-34); Albumin 3.2 g/dL (3.4-4.8); Alkaline Phosphatase 36 U/L (40-150); Anion Gap 13 mmol/L (10-20); BUN (Urea Nitrogen) 35 mg/dL (9.8-20.1); Bilirubin, Total 0.3 mg/dL (0.2-1.2); Calc. Creatinine Clearance 0 mL/min (70-130); Calcium 8.2 mg/dL (7.8-10.44); Carbon Dioxide 19 mmol/L (23-31); Chloride 117 mmol/L (98-107); Estimated GFR-MDRD 70; Globulin 2.3 g/dL (2.4-3.5); Glucose 174 mg/dL (83-110); Potassium 3.8 mmol/L (3.5-5.1); Protein, Total 5.5 g/dL (6.0-8.3); Sodium 145 mmol/L (136-145)
[2019-03-13] MEDS: Morphine 2 MG/ML SYRINGE SLOW IVP PRN (21:16)
[2019-03-13] MEDS: Pantoprazole 40 MG VIAL IVP SCH (21:16)
[2019-03-13] MEDS: Ondansetron PF 4 MG/2 ML Vial IVP PRN (21:18)
[2019-03-13 21:58] VITALS: BMI 33.4
[2019-03-14 00:31] LABS: Hemoglobin 9.4 g/dL (12.0-16.0); Platelet Count 160 thou/uL (130-400)
[2019-03-14] MEDS: Morphine 2 MG/ML SYRINGE SLOW IVP PRN (02:03)
[2019-03-14] MEDS: Ondansetron PF 4 MG/2 ML Vial IVP PRN (02:05)
--- NOTE | 2019-03-14 06:38 | PDOC.FM ---
- Subjective Subjective: Ms. Monteiro reports discomfort with NG tube and requests to have it out as soon as possible. She has ambulated some. Denies pain, SOB, CP. Otherwise has no complaints. - Objective MAR Reviewed: Yes Vital Signs & Weight: Vital Signs (12 hours) Temp Pulse Resp BP Pulse Ox 03/14/19 03:45 98.4 F 03/13/19 23:41 99.6 F 03/13/19 20:00 98 03/13/19 19:02 98.2 F 96 20 143/75 H 97 Weight Weight 88.4 kg Most Recent Monitor Data Heart Rate from ECG 85 NIBP 132/58 NIBP BP-Mean 82 Respiration from ECG 16 SpO2 95 I&O: 03/12/19 03/13/19 03/14/19 06:59 06:59 06:59 Output Total 775 Balance -775 Result Diagrams: 03/14/19 00:18 03/13/19 17:54 Phys Exam - Physical Examination Constitutional: NAD NG in place Respiratory: no wheezing, no rhonchi, clear to auscultation bilateral Cardiovascular: RRR 3/5 systolic ejection murmur Gastrointestinal: soft, non-tender, positive bowel sounds Musculoskeletal: no edema, pulses present Neurological: non-focal Psychiatric: normal affect Skin: normal turgor Dx/Plan (1) Acute blood loss anemia Code(s): D62 - ACUTE POSTHEMORRHAGIC ANEMIA Status: Acute (2) Upper GI bleed Code(s): K92.2 - GASTROINTESTINAL HEMORRHAGE, UNSPECIFIED Status: Acute (3) Diabetes Code(s): E11.9 - TYPE 2 DIABETES MELLITUS WITHOUT COMPLICATIONS Status: Acute (4) HTN (hypertension) Code(s): I10 - ESSENTIAL (PRIMARY) HYPERTENSION Status: Acute (5) History of aortic valve replacement Code(s): Z95.2 - PRESENCE OF PROSTHETIC HEART VALVE Status: Acute (6) Hyperlipidemia Code(s): E78.5 - HYPERLIPIDEMIA, UNSPECIFIED Status: Acute - Plan Plan: This is a 74 yo female with a pmh HTN, HLD, afib, aortic valve replacement that is transferred to [facility] for acute upper GI bleed Acute blood loss anemia 2/2 UGI bleed -S/P EGD with cauderization of ulcer. Official op report pending -s/p 4 units PRBCs -H/H stable at 9.4/26 this am -Cont IV protonix BID -no NG output recorded, appears minimal dark in canister -Appreciate recommendations from GI Gastric ulcers - avoid NSAIDs HTN -Monitor, restart meds when can tolerate PO -PRN meds in place Hypothyroidism -Continue home meds when pt can tolerate PO DM2 -Continue home meds when pt can tolerate PO -SSI, ACHS accuchecks Afib -Start home meds when pt can tolerate PO, hold anticoagulation/platelet CAD, stable CKD II, stable Code: Full Prophylaxis: Protonix Family: none at bedside Diet: NPO PCP: Tatiana Barbosaendum - Attending - Attending Attestation Date/Time: 03/14/19 3761 I personally evaluated the patient and discussed the management with Dr. Greene. I agree with the History, Examination, Assessment and Plan documented above with any addition or exceptions noted below. Patient has no complaints other than NG tube. Her blood counts have slowly trended down overnight. Await further GI recs, possible for another EGD today. Continue to trend H/H and transfuse as needed if below 7/21. No other complaints at this time.
[2019-03-14 08:07] LABS: Hemoglobin 9.8 g/dL (12.0-16.0); Platelet Count 170 thou/uL (130-400)
[2019-03-14] MEDS: Pantoprazole 40 MG VIAL IVP SCH ×2 (08:19→20:53)
[2019-03-14] MEDS ORDERED: Prevnar 13-Val Conj/PF 0.5 ML SYRINGE IM ONE (09:00)
[2019-03-14] MEDS ORDERED: Promethazine HCl 25 MG/ML VIAL IM PRN (10:51)
[2019-03-14] MEDS ORDERED: Ondansetron HCl/PF 4 MG/2 ML Vial IVP PRN (10:51)
[2019-03-14] MEDS ORDERED: Promethazine HCl 25 MG/ML VIAL SLOW IVP PRN (10:51)
--- NOTE | 2019-03-14 11:16 | OP ---
DATE OF PROCEDURE: 03/14/2019 PROFESSOR OF VIOLIN SURGEON: None. PROCEDURE PERFORMED: Esophagogastroduodenoscopy, diagnostic. INDICATION: Gastric ulcer, with active hemorrhage in endoscopic therapy applied on EGD performed yesterday. Acute blood loss anemia appears to have stabilized. The patient is here for second-look upper endoscopy today. MEDICATIONS: See Anesthesia record. FINDINGS: After discussion of the risks, benefits, and alternatives of the procedure, informed consent was obtained and witnessed. Pre-endoscopic cardiopulmonary examination was satisfactory. Time-out was performed before sedation was achieved. Sedation was achieved with Anesthesia assistance in the endoscopy unit. The patient's nasogastric tube was removed. A Pentax adult upper endoscope was placed into the oropharynx and passed through the cricopharyngeus under direct visualization. The esophageal mucosa appeared normal throughout with a normal-appearing Z-line. No evidence of any esophageal varices. The endoscope was advanced into the stomach. Forward and retroflexed views of the entire gastric mucosa were obtained. There was no evidence of any gastric varices. There is no old blood or active bleeding in the stomach. In the gastric antrum, there is some patchy erosive gastritis. There is some nasogastric tube trauma within the gastric body. I did not take any biopsies today. On retroflexion in the stomach, there is a very large ulcer in the gastric cardia. This ulcer has a necrotic base, but no discrete visible vessel and no active bleeding. The ulcer appears to sit atop a large submucosal mass measuring at least 3 to 4 cm in diameter. The endoscope was advanced beyond the pylorus and into the first and second portions of the duodenum, which appeared normal. The upper endoscope was then completely withdrawn and then the patient allowed to recover. The patient tolerated the procedure well. There were no immediate postprocedure complications. IMPRESSION: 1. Very large ulcer in the gastric cardia, with necrotic base, but no active bleeding. The ulcer appears to be atop a submucosal mass measuring at least 3-4 cm in diameter. 2. Patchy gastritis. 3. Otherwise, normal esophagogastroduodenoscopy. RECOMMENDATION: 1. Obtain CT abdomen with contrast, for evaluation of what appears to be a submucosal gastric mass. 2. Continue the IV PPI 40 mg every 12 hours for at least two more days. 3. Full liquid diet for now. 4. Continue to monitor closely, trend H and H daily. Job ID: [id number]
[2019-03-14] MEDS ORDERED: ISOVUE-370 76%-LOCM 1 ML ONE (11:58)
[2019-03-14] MEDS ORDERED: PROPOFOL 200 MG/20 ML VIAL ONE (12:23)
[2019-03-14] MEDS ORDERED: Lidocaine 1% PF 5 ML VIAL ONE (12:23)
--- NOTE | 2019-03-14 13:11 | CT ---
CT of the abdomen with contrast INDICATION: History of submucosal mass within the gastric cardia and: History of appendectomy, hyster ectomy and aortic valvular replacement COMPARISON: None FINDINGS: Lung bases: There is postprocedural change of the aortic valvular replacement. There are small bilate ral pleural effusions and bibasilar atelectasis. Liver: There is a tiny 8 mm hypodensity within the posterior right hepatic lobe, within segment 7, on image 21 of series 2 that cannot be further characterized. There is diffuse fatty liver. Pancreas: Normal. Adrenal glands: Normal appearing. Kidneys: There is a 5 mm nonobstructing calculus within the inferior pole left kidney. Right kidney i s normal-appearing. Spleen: Within normal limits. Stomach and proximal small bowel: There is a well-circumscribed 3.5 x 4.7 cm low-density, heterogeneo us enhancing mass centered within the region of the gastric cardia. There is no exophytic extension beyond the posterior margin of the proximal stomach. Lymphadenopathy: No enlarged lymph nodes are seen. Vasculature: There is moderate calcification involving the abdominal vasculature. Large bowel: The visualized: appears within normal limits. Free fluid or free air: None Osseous structures: There is scattered degenerative and osteoarthritic change present. There is a be nign-appearing hemangioma within L3. IMPRESSION: 1. Well-circumscribed hypodense, heterogeneously enhancing mass within the gastric cardia. This lesio n does not appear to extend exophytically beyond the margins of the gastric wall. Differential considerations include entities such as a GIST tumor, intramural lipoma, intramural fibroma and less likely entities such as intramural lymphoma. 2. Fatty liver with a tiny hepatic hypodensity, difficult characterize due to its size. If clinically indicated, a multiphase hemangioma protocol may be helpful for improved characterization. 3. Small bilateral pleural effusions with bibasilar atelectasis. 4. Left nephrolithiasis
[2019-03-14 13:38] LABS: Hemoglobin 9.2 g/dL (12.0-16.0); Platelet Count 155 thou/uL (130-400)
[2019-03-14] MEDS: Ipratropium Bromide 0.03% Nasal Inhaler 30 ml Bottle EA NARE SCH ×2 (15:44→20:53)
--- NOTE | 2019-03-14 21:30 | CON ---
DATE OF CONSULTATION: 03/14/2019 HISTORY OF PRESENT ILLNESS: Cayetano is a very pleasant 74-year-old female who is admitted with GI bleeding. She underwent endoscopy, which was suggestive of mass under an ulcer. She has undergone CT scanning today, which showed gastric greater curvature mass. Fatty liver was also noted. Small effusions were seen bilaterally. Kidney stone was seen on the left. She has stopped bleeding. Her only complaint is that she has had an intermittent cough for several weeks, aggravated by lying flat in bed. PAST MEDICAL HISTORY: 1. Remarkable for appendectomy. 2. Status post hysterectomy. 3. History of aortic valve replacement. 4. History of hypertension. 5. Diabetes. FAMILY HISTORY: Negative for lung disease in her early age. SOCIAL HISTORY: She is not a smoker or drinker. REVIEW OF SYSTEMS: A 10-point review of systems completed. As mentioned, only remarkable for this intermittent cough. PHYSICAL EXAMINATION: GENERAL: She is in no distress. She is lying almost flat in bed. VITALS: She is afebrile, heart rate is 88, respiratory rate 18, blood pressure 126/70. HEENT: Pupils are equal. Sclerae is anicteric. NECK: Supple. No lymphadenopathy. LUNGS: Clear. HEART: Regular rhythm. S1, S2 are normal. ABDOMEN: Soft and nontender. EXTREMITIES: Without clubbing, cyanosis, or edema. IMPRESSION: 1. 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 Surgery consultation should be obtained at some point. 2. Gastroenterology bleeding stopped at this time. 3. Cough, likely upper airway mediated, nasal ipratropium may be helpful for this. 4. Hypertension, controlled at this time. 5. History of diabetes. 6. History of hypertension. 7. Lipid disorder. 8. Aortic valve replacement in the past. 9. Obesity. 10. 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 11. For any more procedures, obviously we will have to be associated with antimicrobial prophylaxis. I will be happy to follow her while she is in the Intermediate Care Unit. This is a 50 minute consult, with greater than 50% of time spent on unit coordinating care. Job ID: [id number] MTDD
--- NOTE | 2019-03-15 06:16 | PDOC.FM ---
- Subjective Subjective: Patient feeling much better this morning. Denies pain, difficulty breathing. Discussed CT findings with patient. Discussed case with general surgery. Since patient currently stable, recommended outpatient follow up or consultation tomorrow morning. - Objective Vital Signs & Weight: Vital Signs (12 hours) Temp Pulse Ox 03/15/19 04:00 97.8 F 03/15/19 00:30 97.6 F 03/14/19 20:00 95 03/14/19 19:00 98.8 F Weight Weight 88.4 kg Most Recent Monitor Data Heart Rate from ECG 83 NIBP 108/52 NIBP BP-Mean 70 Respiration from ECG 14 SpO2 96 I&O: 03/13/19 03/14/19 03/15/19 06:59 06:59 06:59 Intake Total 800 Output Total 775 750 Balance -775 50 Result Diagrams: 03/15/19 06:28 03/15/19 06:28 Phys Exam - Physical Examination Constitutional: NAD Respiratory: clear to auscultation bilateral Cardiovascular: RRR, no significant murmur Gastrointestinal: soft, non-tender, positive bowel sounds Musculoskeletal: no edema Neurological: non-focal Psychiatric: normal affect Skin: normal turgor Dx/Plan (1) Acute blood loss anemia Code(s): D62 - ACUTE POSTHEMORRHAGIC ANEMIA Status: Acute (2) Upper GI bleed Code(s): K92.2 - GASTROINTESTINAL HEMORRHAGE, UNSPECIFIED Status: Acute (3) Diabetes Code(s): E11.9 - TYPE 2 DIABETES MELLITUS WITHOUT COMPLICATIONS Status: Acute (4) HTN (hypertension) Code(s): I10 - ESSENTIAL (PRIMARY) HYPERTENSION Status: Acute (5) History of aortic valve replacement Code(s): Z95.2 - PRESENCE OF PROSTHETIC HEART VALVE Status: Acute (6) Hyperlipidemia Code(s): E78.5 - HYPERLIPIDEMIA, UNSPECIFIED Status: Acute - Plan Plan: This is a 74 yo female with a pmh HTN, HLD, afib, aortic valve replacement that is transferred to [facility] for acute upper GI bleed Acute blood loss anemia 2/2 UGI bleed -S/P EGD with cauderization of ulcer. Repeat EGD 03/14 showed large gastric necrotic ulcer atop 3-4 cm submucosal mass. - CT ab showed well circumscribed hypodense mass in gastric cardia, fatty liver , small b/l pleural effusions - NG removed -s/p 4 units PRBCs -H/H stable -Cont protonix BID - consult gen surg tomorrow vs oupatient -Appreciate recommendations from GI Gastric ulcer - avoid NSAIDs HTN -continue home meds -PRN meds in place Hypothyroidism DM2 -Continue home meds Afib -Continue home meds CAD, stable CKD II, stable Code: Full Prophylaxis: Protonix Family: none at bedside Diet: CL PCP: Tatiana Dispo: Await GI recommendations today Addendum - Attending - Attending Attestation Date/Time: 03/15/19 1603 I personally evaluated the patient and discussed the management with Dr. rGeene. I agree with the History, Examination, Assessment and Plan documented above with any addition or exceptions noted below. Patient denies complaints this morning. Hgb overall stable. CT showed well circumscribed mass in wall of stomach that correlates to EGD findings under the necrotic ulcer. Continue IV PPI BID. Await further GI recs as to whether this should be worked up inpatient or can be deferred. Continue to trend H/H.
[2019-03-15 06:41] LABS: #Eosinphils 0.1 thou/uL (0.0-0.7); #Lymphocytes 1.7 thou/uL (1.20-3.40); #Monocytes 0.4 thou/uL (0.11-0.59); #Neutrophils 4.4 thou/uL (1.40-6.50); %Basophils 0.4 % (0.0-1.0); %Eosinophils 1.7 % (0.0-10.0); %Lymphocytes 25.5 % (21.0-51.0); %Neutrophils 66.4 % (42.0-75.0); Hemoglobin 8.4 g/dL (12.0-16.0); Mean Corpuscular HGB CONC 34.8 g/dL (32.0-36.0); Mean Corpuscular Volume 89.2 fL (78.0-98.0); Mean Platelet Volume 7.1 fL (7.4-10.4); Platelet Count 151 thou/uL (130-400); RBC Distribution Width 14.4 % (11.5-14.5); White Blood Cell (WBC) Count 6.6 thou/uL (4.8-10.8)
[2019-03-15 07:02] LABS: ALT (SGPT) 10 U/L (8-55); AST (SGOT) 17 U/L (5-34); Albumin 3.2 g/dL (3.4-4.8); Alkaline Phosphatase 38 U/L (40-150); Anion Gap 10 mmol/L (10-20); BUN (Urea Nitrogen) 14 mg/dL (9.8-20.1); Bilirubin, Total 0.3 mg/dL (0.2-1.2); Calc. Creatinine Clearance 79 mL/min (70-130); Calcium 8.5 mg/dL (7.8-10.44); Carbon Dioxide 25 mmol/L (23-31); Chloride 111 mmol/L (98-107); Estimated GFR-MDRD 68; Globulin 2.4 g/dL (2.4-3.5); Glucose 143 mg/dL (83-110); Potassium 3.6 mmol/L (3.5-5.1); Protein, Total 5.6 g/dL (6.0-8.3); Sodium 142 mmol/L (136-145)
[2019-03-15] MEDS ORDERED: Non-Formulary Item 1 EACH (Cholecalciferol (Vitamin D3) [Vitamin D3] 1,000 UNIT) PO SCH (09:00)
[2019-03-15] MEDS ORDERED: METFORMIN HCL PO SCH (09:00)
[2019-03-15] MEDS ORDERED: Topiramate 25 MG TAB PO SCH (09:00)
[2019-03-15] MEDS: metFORMIN XR 500 MG TAB PO SCH ×2 (09:01→20:57)
[2019-03-15] MEDS: Rosuvastatin 10 MG TAB PO SCH (09:01)
[2019-03-15] MEDS: Ipratropium Bromide 0.03% Nasal Inhaler 30 ml Bottle EA NARE SCH ×3 (09:01→20:57)
[2019-03-15] MEDS: Pantoprazole 40 MG VIAL IVP SCH ×2 (09:03→20:57)
[2019-03-15] MEDS: Topiramate 25 MG TAB PO SCH ×2 (09:03→20:57)
--- NOTE | 2019-03-15 11:14 | PRG ---
DATE OF SERVICE: 03/15/2019 SUBJECTIVE: Ms. Monteiro is feeling all right. She has had no melena or hematochezia. No nausea or emesis. Her appetite is not great, but she has been tolerating her liquid diet today. Hemoglobin declined slightly again from 9.2 to 8.4. She has remained hemodynamically stable. OBJECTIVE: VITAL SIGNS: Temperature 98.1, blood pressure 127/62, pulse 77, and 98% oxygen saturation on room air. GENERAL: A 74-year-old woman sitting up in the chair comfortably, pale, in no acute distress. HEART: Regular rate and rhythm. LUNGS: Clear to auscultation bilaterally. ABDOMEN: Soft and nontender. EXTREMITIES: No peripheral edema. LABORATORY STUDIES: WBC 6.6, hemoglobin 8.4, platelets 151. BUN down to 14, creatinine is 0.82, sodium 142, potassium 3.6, glucose 156, alkaline phosphatase 38, AST 17, and ALT 10. IMAGING STUDIES: CT of the abdomen performed yesterday demonstrated a tiny 8 mm hypodensity in the posterior hepatic lobe, diffuse fatty liver. Normal spleen. She has a well-circumscribed 3.5 x 4.7 cm low-density heterogeneous enhancing mass within the gastric cardia with no exophytic extension beyond the posterior margin of the proximal stomach. There is no lymphadenopathy. This gastric mass might represent GIST intramural lipoma or intramural fibroma or less likely intramural lymphoma. ASSESSMENT AND PLAN: 1. Gastric ulcer, secondary to underlying probable submucosal gastric mass. 2. Acute blood loss anemia, appears to have stabilized. I had a long discussion with the patient this morning regarding her EGD and CT findings. She has what appears to be a submucosal mass in the gastric cardia measuring 3.5 x 4.7 cm. This is ulcerated and produced her bleeding gastric ulcer. There is no evidence of bleeding at this time. I think we can advance her diet today, but I would like her to remain on IV PPI at least one more day and assure no recurrence of overt bleeding. For further workup of this gastric mass, I think the patient is going to probably need endoscopic ultrasound. That is not done at this facility, and would need to be arranged on a referral outpatient basis. In the end, I anticipate she is going to need surgical resection of this mass to prevent further bleeding episodes. Job ID: [id number]
--- NOTE | 2019-03-15 16:24 | PRG ---
DATE OF SERVICE: 03/15/2019 SUBJECTIVE: Chantal Monteiro has no complaints. She has not had any rebleeding. OBJECTIVE: VITAL SIGNS: She is afebrile. Heart rate is 84, respiratory rate is 18, oximetry 96% on room air, and blood pressure 129/74. LUNGS: Clear. HEART: Regular rhythm. ABDOMEN: Soft. IMPRESSION: Gastric mass, likely to rebleed. Her hemoglobin is 8.4 today, was 9.2 yesterday. We will await Gastroenterology input and probably General Surgery input. In reviewing records, I do not see where a biopsy was done, so the next step likely will be surgical. I am not sure I would feel comfortable sending her home since she got admitted with significant bleed. I would think this would need to be addressed. Job ID: [id number]
[2019-03-15] MEDS: Losartan 25 MG TAB PO SCH (20:57)
--- NOTE | 2019-03-16 07:04 | PDOC.FM ---
- Subjective Subjective: Mrs Monteiro is feeling well this morning. She has tolerated liquids well. Has had dark BMs. - Objective MAR Reviewed: Yes Vital Signs & Weight: Vital Signs (12 hours) Temp Pulse Resp BP Pulse Ox 03/16/19 05:47 98.4 F 72 18 120/75 95 03/16/19 00:37 98.4 F 74 16 118/67 95 03/15/19 20:00 99.0 F 81 18 124/69 93 L 03/15/19 19:16 93 L Weight Weight 86.1 kg Most Recent Monitor Data Heart Rate from ECG 82 NIBP 130/83 NIBP BP-Mean 98 Respiration from ECG 15 SpO2 100 I&O: 03/15/19 03/16/19 03/17/19 06:59 06:59 06:59 Intake Total 1040 1520 Output Total 750 250 Balance 290 1270 Result Diagrams: 03/16/19 12:56 03/16/19 06:19 Phys Exam - Physical Examination Constitutional: NAD Respiratory: no wheezing, clear to auscultation bilateral Cardiovascular: RRR, no significant murmur Gastrointestinal: soft, non-tender, positive bowel sounds Musculoskeletal: no edema Neurological: non-focal Psychiatric: normal affect Skin: normal turgor Dx/Plan (1) Acute blood loss anemia Code(s): D62 - ACUTE POSTHEMORRHAGIC ANEMIA Status: Acute (2) Upper GI bleed Code(s): K92.2 - GASTROINTESTINAL HEMORRHAGE, UNSPECIFIED Status: Acute (3) Diabetes Code(s): E11.9 - TYPE 2 DIABETES MELLITUS WITHOUT COMPLICATIONS Status: Acute (4) HTN (hypertension) Code(s): I10 - ESSENTIAL (PRIMARY) HYPERTENSION Status: Acute (5) History of aortic valve replacement Code(s): Z95.2 - PRESENCE OF PROSTHETIC HEART VALVE Status: Acute (6) Hyperlipidemia Code(s): E78.5 - HYPERLIPIDEMIA, UNSPECIFIED Status: Acute - Plan Plan: This is a 74 yo female with a pmh HTN, HLD, afib, aortic valve replacement that is transferred to [facility] for acute upper GI bleed Acute blood loss anemia 2/2 UGI bleed -S/P EGD with cauderization of ulcer. Repeat EGD 03/14 showed large gastric necrotic ulcer atop 3-4 cm submucosal mass. - CT ab showed well circumscribed hypodense mass in gastric cardia, fatty liver , small b/l pleural effusions - NG removed, s/p 4 units PRBCs -Hgb slowly trended down -Cont protonix BID -Appreciate recommendations from GI, likely further outpatient management. Gastric ulcer - avoid NSAIDs HTN -continue home meds -PRN meds in place Hypothyroidism DM2 -Continue home meds Afib -Continue home meds CAD, stable CKD II, stable Code: Full Prophylaxis: Protonix Family: none at bedside Diet: CL PCP: Tatiana Dispo: Patient has had slow downtrend in Hgb. Await GI recommendations today. Following procedure will need to be done in [facility]. Addendum - Attending - Attending Attestation Date/Time: 03/16/19 4764 I personally evaluated the patient and discussed the management with Dr. Greene I agree with the History, Examination, Assessment and Plan documented above with any addition or exceptions noted below. Note continue trending H/H was 8.1 currently VSS will need further evaluation stomach mass continue PPI BID and team to discuss with GI today regard need for transfer to higher level of care verse arranging outpatient work up.
[2019-03-16 07:28] LABS: Anion Gap 10 mmol/L (10-20); BUN (Urea Nitrogen) 11 mg/dL (9.8-20.1); Calc. Creatinine Clearance 83 mL/min (70-130); Calcium 8.7 mg/dL (7.8-10.44); Carbon Dioxide 24 mmol/L (23-31); Chloride 110 mmol/L (98-107); Estimated GFR-MDRD 72; Glucose 129 mg/dL (83-110); Potassium 3.3 mmol/L (3.5-5.1); Sodium 141 mmol/L (136-145)
[2019-03-16 07:30] LABS: #Eosinphils 0.1 thou/uL (0.0-0.7); #Lymphocytes 1.4 thou/uL (1.20-3.40); #Monocytes 0.4 thou/uL (0.11-0.59); %Basophils 0.7 % (0.0-1.0); %Eosinophils 2.4 % (0.0-10.0); %Monocytes 7.2 % (0.0-10.0); %Neutrophils 66.7 % (42.0-75.0); Hemoglobin 8.2 g/dL (12.0-16.0); Mean Corpuscular HGB CONC 34.9 g/dL (32.0-36.0); Mean Corpuscular Hemoglobin 30.6 pg (27.0-31.0); Mean Corpuscular Volume 87.8 fL (78.0-98.0); Mean Platelet Volume 7.2 fL (7.4-10.4); Platelet Count 177 thou/uL (130-400); RBC Distribution Width 14.2 % (11.5-14.5); Red Blood Cell (RBC) Count 2.68 mill/uL (4.20-5.40)
[2019-03-16] MEDS: Topiramate 25 MG TAB PO SCH ×2 (08:15→21:21)
[2019-03-16] MEDS: Rosuvastatin 10 MG TAB PO SCH (08:15)
[2019-03-16] MEDS: metFORMIN XR 500 MG TAB PO SCH ×2 (08:16→17:12)
[2019-03-16] MEDS: Ipratropium Bromide 0.03% Nasal Inhaler 30 ml Bottle EA NARE SCH ×3 (08:16→21:21)
[2019-03-16] MEDS: Pantoprazole 40 MG VIAL IVP SCH ×2 (08:16→21:21)
--- NOTE | 2019-03-16 10:31 | OP ---
DATE OF PROCEDURE: 03/13/2019 OPERATIVE PROCEDURE: 1. Esophagogastroduodenoscopy. 2. Esophagogastroduodenoscopy with injection of epinephrine 1:10,000. 3. Esophagogastroduodenoscopy with 10-Cambodian heater probe cauterizing bleeding ulcer. PREOPERATIVE DIAGNOSES: Acute gastrointestinal bleeding. POSTOPERATIVE DIAGNOSES: 1. Normal esophagus. 2. Normal duodenum. 3. Normal . 4. A large ulcer with a visible vessel over the proximal stomach close to the fundus and cardia and also there appears to be somewhat polypoid appearing area. DESCRIPTION OF PROCEDURE: The patient was placed on the left lateral position and was given sedation by Anesthesia Department. A bite block was placed. A Pentax video gastroscope under direct vision passed down the oropharynx past the GE junction into the stomach. The esophagus appeared normal. The GE junction, no pathology. Upon entering the stomach, the patient was found to have a large amount of blood clots and fresh blood in the fundus and cardia. There was another area of blood clots and blood seen over the gastric antrum. Water was irrigated and washed out. On subsequent washing of the antral area, there was no active bleeding seen. The was another area in the duodenum which was showing a blood clot. This was washed out. The underlying mucosa appeared normal. The descending duodenum, no pathology. The scope was withdrawn back to the stomach and subsequently the patient threw up a fairly good amount of blood. The scope was removed. The throat was suctioned out and the patient was intubated and was given sedation again by Anesthesia Department. The patient was re-scoped again. At this time, the scope was advanced into the proximal stomach where a large amount of fresh blood and blood clots seen. Power suction was used to suck out most of the blood loss. Multiple passes were made back and forth into the stomach to try to remove the rest of the clots as possible. After this was accomplished, I could retroflex the scope to see the area of ulceration at the distal vessel and bleeding at the proximal stomach close to the fundus and cardia. Also the area appeared somewhat polypoid. . This was a difficult location to really get accessed with epinephrine injection and also the probe. After , I was able to inject directly into the ulcer base with 1:10,000 epinephrine at 1 mL increment to a total of . Following injection, the area was cauterized with a 10-Cambodian probe with good hemostasis. There were few more clots left in the stomach which I tried to move. Another large clot appeared to be stuck to the mucosa. However, at the end of the procedure, I do not see anymore fresh bleeding. Basically, what I saw was there was a large blood clot proximal stomach. The stomach decompressed and the scope was removed. An NG tube was then connected to suction. RECOMMENDATION: 1. NG suction. 2. Serial H and H. 3. IV Protonix. 4. Second look EGD by Dr. Arturo Burnette tomorrow who is on-call for me. Job ID: [id number]
[2019-03-16 13:06] LABS: #Eosinphils 0.2 thou/uL (0.0-0.7); #Lymphocytes 1.7 thou/uL (1.20-3.40); #Monocytes 0.6 thou/uL (0.11-0.59); #Neutrophils 4.5 thou/uL (1.40-6.50); %Basophils 0.4 % (0.0-1.0); %Lymphocytes 23.7 % (21.0-51.0); %Monocytes 8.8 % (0.0-10.0); %Neutrophils 64.2 % (42.0-75.0); Hemoglobin 8.6 g/dL (12.0-16.0); Mean Corpuscular HGB CONC 34.3 g/dL (32.0-36.0); Mean Corpuscular Hemoglobin 30.6 pg (27.0-31.0); Mean Platelet Volume 6.7 fL (7.4-10.4); Platelet Count 190 thou/uL (130-400); RBC Distribution Width 14.3 % (11.5-14.5)
--- NOTE | 2019-03-16 13:50 | PRG ---
DATE OF SERVICE: 03/16/2019 SUBJECTIVE: Ms. Chantal Monteiro is a very pleasant 74-year-old female with acute upper GI bleeding, hospitalized over the weekend. An emergent EGD done on Saturday afternoon for a large amount of blood and blood clots. The procedure was very lengthy, it took almost an hour and a half to control the bleeding. The bleeding site was identified after all the clots were removed. This was a lesion at the gastric cardia with a mass lesion, ulceration. This was treated with epinephrine injection and also 10-English BiCap probe. She had a second look EGD by Dr. Burnette on the weekend. She had no bleeding, and bleeding appeared controlled. She has done well over the weekend. She has no abdominal pain, no nausea or vomiting. However, blood count has been drifting down slowly. On 03/13/2019, hemoglobin was 10.7 after 4 units of packed RBCs. It has been drifting down slowly from 10.7 to 9.4 to 8.4 yesterday. It then dropped to 8.2. White blood cell count 26.5. However, her BUN, which was around 18 has dropped to 11, most likely from water replacement. She had dark stools yesterday and 2 stools today. . She has actually no complaints. PHYSICAL EXAMINATION: GENERAL: She is obese, appears comfortable. VITAL SIGNS: Stable. Afebrile. Pulse is 84, blood pressure is 180/74. CARDIOVASCULAR SYSTEM: Within normal limits. LUNGS: Within normal limits. ABDOMEN: Soft. Abdomen is nontender. No organomegaly or masses. Bowel sounds normal. CLINICAL IMPRESSION: 1. Acute upper GI bleeding. 2. Gastric ulcer with a gastric mass over the gastric cardia. No biopsies done. The findings suggestive of most likely gist tumor versus leiomyoma. PLAN: H and H now and transfuse p.r.n. If the blood count is stable, consider discharge home tomorrow and we will arrange for an outpatient endosonography. Job ID: [id number]
[2019-03-16] MEDS ORDERED: Melatonin 3 MG TAB PO PRN (20:09)
[2019-03-16] MEDS ORDERED: Potassium Chloride 20 MEQ TAB PO SCH ×2 (20:15→23:59)
[2019-03-16] MEDS: Losartan 25 MG TAB PO SCH (21:21)
[2019-03-17 06:43] LABS: #Eosinphils 0.1 thou/uL (0.0-0.7); #Lymphocytes 1.3 thou/uL (1.20-3.40); #Monocytes 0.5 thou/uL (0.11-0.59); #Neutrophils 3.6 thou/uL (1.40-6.50); %Basophils 0.1 % (0.0-1.0); %Eosinophils 2.6 % (0.0-10.0); %Lymphocytes 23.4 % (21.0-51.0); %Monocytes 9.2 % (0.0-10.0); %Neutrophils 64.8 % (42.0-75.0); Hemoglobin 8.6 g/dL (12.0-16.0); Mean Corpuscular Hemoglobin 30.3 pg (27.0-31.0); Mean Corpuscular Volume 89.3 fL (78.0-98.0); Mean Platelet Volume 7.1 fL (7.4-10.4); Platelet Count 213 thou/uL (130-400); RBC Distribution Width 14.9 % (11.5-14.5); Red Blood Cell (RBC) Count 2.84 mill/uL (4.20-5.40); White Blood Cell (WBC) Count 5.5 thou/uL (4.8-10.8)
[2019-03-17 07:02] LABS: Anion Gap 14 mmol/L (10-20); BUN (Urea Nitrogen) 9 mg/dL (9.8-20.1); Calc. Creatinine Clearance 78 mL/min (70-130); Carbon Dioxide 21 mmol/L (23-31); Chloride 112 mmol/L (98-107); Estimated GFR-MDRD 67; Glucose 123 mg/dL (83-110); Potassium 3.7 mmol/L (3.5-5.1); Sodium 143 mmol/L (136-145)
--- NOTE | 2019-03-17 07:04 | PDOC.FM ---
- Subjective Subjective: Mrs. Monteiro feels well and has no complaints. She says she is ready to go home. Has had normal BM movement, no abdominal pain. - Objective MAR Reviewed: Yes Vital Signs & Weight: Vital Signs (12 hours) Temp Pulse Resp BP Pulse Ox 03/17/19 05:50 97.5 F L 67 12 144/68 H 96 03/17/19 00:05 97.4 F L 73 18 115/67 97 03/16/19 21:05 98.4 F 80 16 118/69 96 03/16/19 20:00 96 Weight Weight 86.1 kg Most Recent Monitor Data Heart Rate from ECG 82 NIBP 130/83 NIBP BP-Mean 98 Respiration from ECG 15 SpO2 100 I&O: 03/16/19 03/17/19 03/18/19 06:59 06:59 06:59 Intake Total 1520 1240 Output Total 250 Balance 1270 1240 Result Diagrams: 03/17/19 05:55 03/17/19 05:55 Phys Exam - Physical Examination Constitutional: NAD Respiratory: clear to auscultation bilateral Cardiovascular: RRR, no significant murmur Gastrointestinal: soft, non-tender, no distention, positive bowel sounds Musculoskeletal: no edema Neurological: non-focal Psychiatric: normal affect Dx/Plan (1) Acute blood loss anemia Code(s): D62 - ACUTE POSTHEMORRHAGIC ANEMIA Status: Acute (2) Upper GI bleed Code(s): K92.2 - GASTROINTESTINAL HEMORRHAGE, UNSPECIFIED Status: Acute (3) Diabetes Code(s): E11.9 - TYPE 2 DIABETES MELLITUS WITHOUT COMPLICATIONS Status: Acute (4) HTN (hypertension) Code(s): I10 - ESSENTIAL (PRIMARY) HYPERTENSION Status: Acute (5) History of aortic valve replacement Code(s): Z95.2 - PRESENCE OF PROSTHETIC HEART VALVE Status: Acute (6) Hyperlipidemia Code(s): E78.5 - HYPERLIPIDEMIA, UNSPECIFIED Status: Acute - Plan Plan: This is a 74 yo female with a pmh HTN, HLD, afib, aortic valve replacement that is transferred to [facility] for acute upper GI bleed Acute blood loss anemia 2/2 UGI bleed -S/P EGD with cauderization of ulcer. Repeat EGD 03/14 showed large gastric necrotic ulcer atop 3-4 cm submucosal mass. - CT ab showed well circumscribed hypodense mass in gastric cardia, fatty liver , small b/l pleural effusions - NG removed, s/p 4 units PRBCs -Hgb has held steady now at 8.6, pt asymptomatic -Cont protonix BID -Appreciate recommendations from GI, plan to arrange following procedure at [facility] per patient Gastric ulcer - avoid NSAIDs HTN -continue home meds -PRN meds in place Hypothyroidism DM2 -Continue home meds Afib -Continue home meds CAD, stable CKD II, stable Code: Full Prophylaxis: Protonix Family: none at bedside Diet: CL PCP: Tatiana Dispo: Hgb stable, pt may discharge today. Pending GI to arrange further workup and if they have any other recommendations. Addendum - Attending - Attending Attestation Date/Time: 03/17/19 4895 I personally evaluated the patient and discussed the management with Dr. Greene I agree with the History, Examination, Assessment and Plan documented above with any addition or exceptions noted below. Patient remains hemodynamically stable for f/u endoscopy with sono guided biopsy of stomach mass.
[2019-03-17 07:40] VITALS: BP 131/74; TEMP 97.8
[2019-03-17] MEDS: Rosuvastatin 10 MG TAB PO SCH (08:35)
[2019-03-17] MEDS: Ipratropium Bromide 0.03% Nasal Inhaler 30 ml Bottle EA NARE SCH (08:35)
[2019-03-17] MEDS: Topiramate 25 MG TAB PO SCH (08:35)
[2019-03-17] MEDS: Pantoprazole 40 MG VIAL IVP SCH (08:36)
--- NOTE | 2019-03-18 09:07 | PRG ---
DATE OF SERVICE: 03/17/2019 SUBJECTIVE: This is a 74-year-old female came to the day surgery on 03/13/2019, [facility] because of upper GI bleeding. She underwent EGD and was found to have massive bleeding with large amount of blood clots and fresh blood. She has been transfused 4 units of packed cells. She had an EGD and found to have ulcerated polypoid lesion in the gastric cardia. This was treated with epinephrine injection and BICAP probe. Her bleeding was controlled. She had a second look EGD by Dr. Arturo Burnette the following day. Again, she had the same findings without any bleeding. Dr. Burnette performed EGD on 03/14/2019. There was no bleeding seen. He saw a 5 cm size smooth mass over the gastric cardia with ulceration. He recommend . The patient has done well over the last 3 days. She has no bleeding. Although, she did pass some black tarry stool, it appears she was passing more old blood. Hemoglobin has been stable at 8.6 yesterday and today. She had stool today and the stool was actually normal in color. She is tolerating diet. No abdominal pain. No nausea, vomiting. OBJECTIVE: GENERAL: Appears comfortable. VITAL SIGNS: Afebrile, pulse is 64, blood pressure 131/74. HEENT: Conjunctivae clear. CARDIOVASCULAR SYSTEM: First and second heart sounds normal. LUNGS: Clear to auscultation. ABDOMEN: Soft. No organomegaly. No tenderness. No masses. LABORATORY DATA: From today WBC 5500, hemoglobin 8.6 same as yesterday, hematocrit 25.3. Chem 7 today: Sodium is 143, potassium 3.7, chloride 112, bicarb 21, BUN is 9, creatinine 0.87, glucose 123. IMPRESSION: 1. Acute mass with upper gastrointestinal bleeding. 2. Gastric ulcer, gastric mass. 3. Anemia due to blood loss. RECOMMENDATION: 1. From GI standpoint she can be discharged home on pantoprazole 40 once a day. 2. She was advised to not take any aspirin or any NSAIDs and pain medication. 3. We will plan for endosongraphic biopsy of the gastric mass in the near future. Job ID: [id number]
--- NOTE | 2019-03-18 14:51 | EKG ---
Test Reason : PREOP Blood Pressure : / mmHG Vent. Rate : 120 BPM Atrial Rate : 120 BPM P-R Int : 140 ms QRS Dur : 080 ms QT Int : 336 ms P-R-T Axes : 066 016 113 degrees QTc Int : 474 ms Sinus tachycardia Abnormal ECG Confirmed by TEVIN TERRELL ([id number]) on 03/18/2019 2:50:47 PM Referred By: DUNIA Confirmed By:TEVIN TERRELL
== END 2019-03-17 13:05 | disposition home or self-care (01) | DRG 811 ==
LOC: SDC 12:09 → IMCU/EMU 15:20 → T4-B 03-15 13:50
PROVIDERS: ADMIT Internal Medicine Gastroenterology; ATTEND Internal Medicine Gastroenterology
PROC: 0W3P8ZZ Control Bleeding in Gastrointestinal Tract, Via Natural or Artificial Opening Endoscopic (ICD-10-PCS; principal; 2019-03-13)
PROC: 30233N1 Transfusion of Nonautologous Red Blood Cells into Peripheral Vein, Percutaneous Approach (ICD-10-PCS; 2019-03-13)
PROC: 0DJ08ZZ Inspection of Upper Intestinal Tract, Via Natural or Artificial Opening Endoscopic (ICD-10-PCS; 2019-03-14)
DX: D62 Acute posthemorrhagic anemia (principal); K25.4 Chronic or unspecified gastric ulcer with hemorrhage; I12.0 Hypertensive chronic kidney disease with stage 5 chronic kidney disease or end stage renal disease; E78.5 Hyperlipidemia, unspecified; E11.22 Type 2 diabetes mellitus with diabetic chronic kidney disease; F41.9 Anxiety disorder, unspecified; I48.91 Unspecified atrial fibrillation; E03.9 Hypothyroidism, unspecified; I25.10 Atherosclerotic heart disease of native coronary artery without angina pectoris; N18.2 Chronic kidney disease, stage 2 (mild); G47.33 Obstructive sleep apnea (adult) (pediatric); E66.9 Obesity, unspecified; R19.09 Other intra-abdominal and pelvic swelling, mass and lump; Z79.82 Long term (current) use of aspirin; Z88.0 Allergy status to penicillin; Z88.5 Allergy status to narcotic agent; Z79.01 Long term (current) use of anticoagulants; Z95.2 Presence of prosthetic heart valve; Z79.84 Long term (current) use of oral hypoglycemic drugs; Z79.899 Other long term (current) drug therapy; Z86.73 Personal history of transient ischemic attack (TIA), and cerebral infarction without residual deficits; Z90.49 Acquired absence of other specified parts of digestive tract; Z90.710 Acquired absence of both cervix and uterus
CPT/HCPCS: 36415; 36416; 74160; 80048; 80053; 85014; 85018; 85025; 85049; 86850; 86900; 86901; 93005; 93010; C9113; J0171; J2001; J2270; J2405; J2704; P9016; Q9966

== ENCOUNTER 2019-06-05 11:00 | Inpatient (IN) | payer MEDICARE ==
[2019-06-09] MEDS ORDERED: cefOXitin 2 GM VIAL ONE (06:45)
[2019-06-09] MEDS ORDERED: Bupivacaine/Epinephrine 0.25% 30 ML VIAL ONE (06:45)
[2019-06-09] MEDS ORDERED: Sodium Chloride 0.9% 100 ML ONE (06:45)
[2019-06-09] MEDS ORDERED: Ketorolac Tromethamine 30 MG/ML VIAL ONE ×2 (06:45→12:52)
[2019-06-09] MEDS ORDERED: Famotidine/PF 20 mg/2ml Vial ONE (06:46)
[2019-06-09] MEDS ORDERED: Fentanyl 100 MCG/2 ML VIAL ONE (06:46)
[2019-06-09] MEDS ORDERED: Promethazine HCl 25 MG/ML VIAL IM PRN ×2 (09:08→12:06)
[2019-06-09] MEDS ORDERED: Promethazine HCl 25 MG/ML VIAL SLOW IVP PRN (09:08)
[2019-06-09] MEDS ORDERED: Ondansetron HCl/PF 4 MG/2 ML Vial IVP PRN (09:08)
[2019-06-09] MEDS ORDERED: Promethazine HCl 25 MG/ML VIAL ONE (09:45)
[2019-06-09] MEDS ORDERED: Acetaminophen 1,000 MG in Premix Bag 1 BAG IVPB SCH (12:00)
[2019-06-09] MEDS ORDERED: Ketorolac Tromethamine 30 MG/ML VIAL IVP SCH (12:00)
[2019-06-09] MEDS ORDERED: hydrALAZINE 20 MG/ML VIAL SLOW IVP PRN (12:06)
[2019-06-09] MEDS ORDERED: Dextrose 50% Abboject 50 ML SYRINGE SLOW IVP PRN (12:06)
[2019-06-09] MEDS ORDERED: Ondansetron PF 4 MG/2 ML Vial IVP PRN (12:06)
[2019-06-09] MEDS ORDERED: HumaLOG 300 UNITS/3 ML VIAL SC PRN (12:06)
[2019-06-09] MEDS ORDERED: Dextrose 5% in Water 1,000 ML IV PRN (12:06)
[2019-06-09] MEDS ORDERED: Famotidine/PF 20 mg/2ml Vial SLOW IVP SCH (12:15)
[2019-06-09 15:01] VITALS: BMI 33.8
[2019-06-09] MEDS: Lactated Ringer's 1,000 ML IV SCH ×2 (15:53→21:47)
[2019-06-09] MEDS: Acetaminophen 1,000 MG in Premix Bag 1 BAG IVPB SCH ×2 (15:54→21:53)
[2019-06-09] MEDS: Ketorolac Tromethamine 30 MG/ML VIAL IVP SCH ×2 (15:54→21:51)
[2019-06-09] MEDS: Morphine 2 MG/ML SYRINGE SLOW IVP PRN (19:14)
[2019-06-09] MEDS: Famotidine/PF 20 mg/2ml Vial SLOW IVP SCH (20:34)
[2019-06-09] MEDS ORDERED: Enoxaparin Sodium 40 MG/0.4 ML SYRINGE SC SCH (21:00)
[2019-06-10] MEDS: Morphine 2 MG/ML SYRINGE SLOW IVP PRN ×2 (02:15→08:31)
[2019-06-10] MEDS: Lactated Ringer's 1,000 ML IV SCH (02:16)
[2019-06-10] MEDS: Ketorolac Tromethamine 30 MG/ML VIAL IVP SCH ×2 (04:07→10:29)
[2019-06-10] MEDS: Acetaminophen 1,000 MG in Premix Bag 1 BAG IVPB SCH ×2 (04:09→10:30)
[2019-06-10 07:48] LABS: #Eosinphils 0.1 thou/uL (0.0-0.7); #Lymphocytes 1.2 thou/uL (1.20-3.40); #Monocytes 0.5 thou/uL (0.11-0.59); #Neutrophils 4.7 thou/uL (1.40-6.50); %Basophils 0.5 % (0.0-1.0); %Eosinophils 1.2 % (0.0-10.0); %Neutrophils 71.2 % (42.0-75.0); Hemoglobin 9.1 g/dL (12.0-16.0); Mean Corpuscular HGB CONC 32.4 g/dL (32.0-36.0); Mean Corpuscular Hemoglobin 25.9 pg (27.0-31.0); Mean Corpuscular Volume 80.1 fL (78.0-98.0); Mean Platelet Volume 7.3 fL (7.4-10.4); Platelet Count 224 thou/uL (130-400); RBC Distribution Width 15.8 % (11.5-14.5); Red Blood Cell (RBC) Count 3.49 mill/uL (4.20-5.40); White Blood Cell (WBC) Count 6.5 thou/uL (4.8-10.8)
[2019-06-10 08:07] LABS: Anion Gap 12 mmol/L (10-20); BUN (Urea Nitrogen) 12 mg/dL (9.8-20.1); Calc. Creatinine Clearance 80 mL/min (70-130); Calcium 9.1 mg/dL (7.8-10.44); Carbon Dioxide 25 mmol/L (23-31); Chloride 109 mmol/L (98-107); Estimated GFR-MDRD 68; Glucose 120 mg/dL (83-110); Potassium 3.8 mmol/L (3.5-5.1); Sodium 142 mmol/L (136-145)
[2019-06-10] MEDS: Famotidine/PF 20 mg/2ml Vial SLOW IVP SCH (08:32)
[2019-06-10 12:14] VITALS: BP 168/77; TEMP 98.5
--- NOTE | 2019-06-10 15:34 | DIS ---
DATE OF ADMISSION: 06/09/2019 DATE OF DISCHARGE: 06/10/2019 ADMISSION DIAGNOSIS: Gastrointestinal stromal tumor of upper stomach. POSTOPERATIVE DIAGNOSIS: Gastrointestinal stromal tumor of upper stomach. OPERATION PERFORMED: Laparoscopic segmental resection of tumor in the fundus of the stomach. ADMISSION HISTORY: The patient is a 74-year-old white female, admitted for definitive treatment of a 4 cm tumor at the cardia of her stomach. HOSPITAL COURSE: She underwent laparoscopic segmental gastric resection on the day of admission. Surgery was uneventful. She has tolerated the procedure well. On the morning after surgery, she is tolerating her liquid diet with minimal pain, she is ambulating and voiding. Her vital signs and laboratory studies were within normal limits. She is somewhat anemic with a hemoglobin of 9.1, however, she was anemic before the surgery as well. She is discharged home at this time with a prescription for tramadol and asked to follow up with myself in 2 weeks. I have instructed her to maintain a liquid and soft diet for the next 2 weeks. Job ID: [id number]
--- NOTE | 2019-06-11 14:22 | OP ---
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 PROCEDURES PERFORMED: Laparoscopic partial gastrectomy, esophagogastroduodenoscopy. ANESTHESIA: General endotracheal. INDICATIONS FOR PROCEDURE: The patient is a 74-year-old white female. She recently experienced upper GI bleed. Endoscopy revealed a mass in the cardia of the stomach. This has been subsequently evaluated with CT scan and endoscopic ultrasound. Biopsies of this revealed findings consistent with gastrointestinal stromal tumor. She is taken to the operating room at this time for planned laparoscopic resection. DESCRIPTION OF PROCEDURE: Informed consent was obtained. The patient was taken to the operating room where general endotracheal anesthesia was obtained with the patient in supine position. The abdomen was prepped with ChloraPrep and draped in sterile fashion. Local anesthetic was infiltrated using 0.25% Marcaine with epinephrine. A 5 mm supraumbilical incision was created, through which a Veress needle was passed into the peritoneal cavity and pneumoperitoneum was established using carbon dioxide up to a pressure of 15 mmHg. A 5 mm trocar port was passed through the same incision. Laparoscopic camera was passed through this port. Under direct vision, I placed 4 additional ports, placing bilateral subcostal 5 mm ports, a 12 mm left paramedian port, and a 5 mm right paramedian port. Finally, I placed a 5 mm incision in the epigastrium, through which the Kasandra retractor was passed into the abdomen and used to elevate the left lobe of the liver. The stomach was examined. There was no obvious mass appreciated on the posterior aspect of the upper stomach. I therefore decided to mobilize the upper stomach. The greater curvature was taken down with LigaSure device for approximately the upper 3rd of the stomach. The short gastrics were carefully divided. The posterior gastric adhesions were mobilized as well. I mobilized the upper portion of the stomach up to the esophagus and took down the angle of His. Once the stomach was mobilized, I was able to appreciate the intragastric lesion. This still had no obvious external visible abnormality. I was, using graspers, able to appreciate the mass along the greater curvature in what appeared more toward the fundus and the cardia of the stomach. I then placed a size 40 bougie down the esophagus and into the gastric lumen. Utilizing this as a guide, I determined that I would be able to resect the tumor using a stapler without narrowing the lumen of the stomach. I obtained an Prompton stapler with blue load. I resected the tumor with 2 fires of the stapler so as to create a wedge resection in the upper stomach. This appeared to completely resect the tumor without compromising the lumen of the stomach along the lesser curve. The specimen was placed in a specimen retrieval sac and this was removed through the 12 mm port site. I had to significantly extend the skin incision and the fascial incision to remove this tumor. On the back table, the specimen was examined and part of the staple line was opened. This did reveal an ulcerated segment of the tumor. It appeared that it was encapsulated and that the entire tumor was removed surgically. The margins appeared to be grossly negative. The bougie was then removed under vision. The staple line was inspected and found to be hemostatic. I performed an upper GI endoscopy, passing the scope down into the stomach. The staple line was examined and found to be intact and there was no evidence of any residual tumor within the stomach. There was no evidence of leak at the staple line when the stomach was dilated. The scope was removed. Attention was turned laparoscopically. The area was irrigated and all irrigant was aspirated. The fascia at the specimen extraction site was closed with 2 [id number] sutures of 0 Vicryl placed using the GraNee needle. All ports and instruments were removed under direct vision. Pneumoperitoneum was carefully evacuated. 0.25% Marcaine with epinephrine was infiltrated at each port site. Skin edges were approximated with 4-0 Monocryl subcuticular suture. Dermabond was placed externally. There were no complications. The patient tolerated the procedure well and was taken to the recovery room in stable condition. Job ID: [id number]
== END 2019-06-10 12:55 | disposition home or self-care (01) | DRG 544 ==
LOC: SURG A 06-09 05:46
PROVIDERS: ADMIT Specialist; ATTEND Specialist
PROC: 0DB64ZZ Excision of Stomach, Percutaneous Endoscopic Approach (ICD-10-PCS; principal; 2019-06-09)
DX: C49.A2 Gastrointestinal stromal tumor of stomach (principal); E11.9 Type 2 diabetes mellitus without complications; D64.9 Anemia, unspecified; Z88.0 Allergy status to penicillin; Z90.49 Acquired absence of other specified parts of digestive tract; Z95.2 Presence of prosthetic heart valve; Z79.84 Long term (current) use of oral hypoglycemic drugs; Z79.899 Other long term (current) drug therapy
CPT/HCPCS: 36415; 36416; 80048; 85025; 88309; 88341; 88342; J0131; J0694; J1650; J1885; J2270; J2550; J3010; J3490; S0028

== ENCOUNTER 2019-06-05 11:12 | Outpatient (CLI) | payer MEDICARE ==
[2019-06-05 12:18] LABS: #Eosinphils 0.1 thou/uL (0.0-0.7); #Lymphocytes 1.5 thou/uL (1.20-3.40); #Monocytes 0.5 thou/uL (0.11-0.59); #Neutrophils 4.1 thou/uL (1.40-6.50); %Basophils 0.1 % (0.0-1.0); %Eosinophils 2.2 % (0.0-10.0); %Lymphocytes 24.4 % (21.0-51.0); %Monocytes 8.4 % (0.0-10.0); %Neutrophils 64.9 % (42.0-75.0); Hemoglobin 10.2 g/dL (12.0-16.0); Mean Corpuscular HGB CONC 32.6 g/dL (32.0-36.0); Mean Corpuscular Hemoglobin 26.2 pg (27.0-31.0); Mean Corpuscular Volume 80.3 fL (78.0-98.0); Mean Platelet Volume 7.7 fL (7.4-10.4); Platelet Count 248 thou/uL (130-400); RBC Distribution Width 16.2 % (11.5-14.5); Red Blood Cell (RBC) Count 3.88 mill/uL (4.20-5.40); White Blood Cell (WBC) Count 6.3 thou/uL (4.8-10.8)
[2019-06-05 12:42] LABS: Anion Gap 14 mmol/L (10-20); BUN (Urea Nitrogen) 14 mg/dL (9.8-20.1); Calc. Creatinine Clearance 0 mL/min (70-130); Calcium 9.6 mg/dL (7.8-10.44); Carbon Dioxide 22 mmol/L (23-31); Chloride 110 mmol/L (98-107); Estimated GFR-MDRD 55; Glucose 103 mg/dL (83-110); Potassium 3.9 mmol/L (3.5-5.1); Sodium 142 mmol/L (136-145)
== END 2019-06-05 11:13 | disposition home or self-care (01) ==
LOC: LABBT 11:12
PROVIDERS: ATTEND Specialist
DX: Z01.812 Encounter for preprocedural laboratory examination (principal); C49.A0 Gastrointestinal stromal tumor, unspecified site
CPT/HCPCS: 80048; 85025